=== PATIENT | female | born 1945 | race Caucasian/White ===

== ENCOUNTER 2024-09-30 13:43 | Outpatient (REF) | payer OTHER, SELFPAY ==
--- NOTE | ~2024-09-30 | MM_ITS ---
EXAMINATION: MM SCREENING DIGITAL BREAST TOMOSYNTHESIS, BILATERAL CLINICAL INFORMATION: Screening. Asymptomatic. COMPARISON: Mammography: Baseline. TECHNIQUE: Digital breast mammography with tomosynthesis is performed in both the craniocaudal and mediolateral oblique views along with computer-aided detection (CAD). FINDINGS: The breasts are heterogeneously dense, which may obscure small masses (ACR BI-RADS breast composition Category c). There are no significant masses, abnormal calcifications, or other abnormalities. MM/MM tomosynthesis screening BI IMPRESSION: No mammographic evidence of malignancy. ASSESSMENT: BI-RADS BI-RADS 1 - Negative RECOMMENDATION: Routine annual mammography screening. 1 year F/U This examination should not preclude the clinical evaluation of a suspicious palpable abnormality. This patient's information was entered into a reminder system with a target due date for their next mammogram. Electronically signed by: Rowena Sousa DO 10/05/2024 09:37 PM EDT
--- NOTE | ~2024-09-30 | MM_ITS ---
EXAMINATION: BONE DENSITOMETRY CLINICAL INDICATION: Early menopause. Hysterectomy. COMPARISON: This is the patient's baseline examination. TECHNIQUE: Using a Wantful DXA System (analysis version 13.60) manufactured by [employer], dual-energy x-ray absorptiometry was performed of the lumbar spine and left hip. The images are of good technical quality. Summary results are attached. FINDINGS: AP SPINE L1-L2: Increased endplate sclerosis along the L3 and and sclerosis along the facet joints at L4 vertebra BMD 0.618 g/cm2, Z-score -2.2, T-score -4.6, limited bone density is increased due to sclerosis of endplates and facet joints in the lower lumbar spine.. LEFT FEMUR, NECK: BMD 0.682 g/cm2, Z-score -0.3, T-score -2.6, mild subchondral sclerosis along the left hip joint likely DJD. IDENTIFIED RISK FACTORS: None listed. HISTORY OF FRACTURE: Left foot fracture x3. MEDICATIONS: None listed. MM/XR DEXA axial skeleton IMPRESSION: 1. DIAGNOSIS: Osteoporosis based on the lowest T-score value of -4.6 in the lumbar spine applying World Health Organization criteria. 2. 10-YEAR FRACTURE RISK PREDICTION, FRAX: Major osteoporotic fracture 14.7%. Left hip 5.7% 3. Treatment Recommendations: NOF guidelines recommend consideration for treatment in postmenopausal women and men age 50 and older presenting with the following: -A hip or vertebral (clinical or morphometric) fracture. -T-score less than or equal to -2.5 at the femoral neck or spine after appropriate evaluation to exclude secondary causes. -Low bone mass at the hip or spine and a 10-year fracture probability by FRAX of greater than or equal to 3% for hip fracture or greater than or equal to 20% for major osteoporotic fracture based on the [place] adapted WHO algorithm. 4. All treatment decisions require clinical judgment and consideration of individual patient factors, including patient preferences, comorbidities, previous drug use, risk factors not captured in the FRAX model and possible under or overestimation of fracture risk by fractures. Additional medical evaluation for secondary causes of lobe bone mineral density may be appropriate. FUTURE SCAN RECOMMENDATION: People with diagnosed cases of osteoporosis or at high risk for fracture should have regular bone mineral density tests. For patients eligible for Medicare, routine testing is allowed once every 2 years. The testing frequency can be increased to one year for patients who have rapidly progressing disease, those who are receiving or discontinuing medical therapy to restore bone mass, or have additional risk factors. Electronically signed by: Nghia Jackson MD 10/02/2024 07:50 AM EDT RP
--- OUTSIDE RECORDS SUMMARY | 2024-09-30 15:39 | XMS_ITS | Data Portability ---
Author Organization [facility], [id number] [place] [address] Assessment No assessment recorded. Plan of Treatment Reminders Order Date Submit Date Provider Last Modified By Organization Details Last Modified Time Details Appointments None record ed. Lab None record ed. Referral None record ed. Procedures None record ed. Surgeries None record ed. Imaging None record ed. Medication Orders None record ed. Patient TargetsNo targets recorded. Patient Instructions Encounter Date Encounter Id Patient Instructions Last Modified By Organization Details Last Modified Time 08/15/2022 [id number] We recommend you go immediately to the nearest Emergency Department for further evaluation. We recommend that you go directly there from here and that you do not eat or drink anything until after you have been evaluated by the ER and cleared by them to eat and drink. [email or web address] Not available 08/15/2022 15:26:58 Reason for Referral None Reported. Problems Name Problem SNOMED Code Status Onset Date Resolution Date Notes Provider Name and Address Organization Details Recorded Time Contreras's esophagus 481360078 Active 023 [facility] 15:19:34 Problem Notes None recorded. Medical Equipment None Reported. Allergies Allergen ID Allergen Name Allergen Category Reaction Reaction Severity Criticality Documentation Date Start Date Code Code System Note Provider Name and Address Organization Details Recorded Time 705146 codeine medicatio n anaphylax is severe Not available 08/15/2022 2670 [facility]Norm [facility] 3 15:18:30 Medications Name Sig Start Date Stop Date Status Note LastModified by Organization Details LastModified Time latanoprost 0.005 % eye drops 08/15 completed Not Available Not Available Not Available sucralfate 100 mg/mL oral suspension 2022 active Not Available Not Available Not Avai lable clonazepam 0.5 mg tablet TAKE 1 TABLET BY MOUTH EVERY OTHER DAY NEEDED active Not Available Not Available No t Available sulfamethoxa zole 800 mg-trimethop rim 160 mg tablet TAKE 1 TABLET BY MOUTH TWICE A DAY FOR 5 DAYS 08/15 completed Not Available Not Available Not Available pantoprazole 40 mg tablet,delay ed release TAKE 1 TABLET BY MOUTH EVERY DAY active Not Available Not Available No t Available lansoprazole 30 mg capsule,tyesha yed release TAKE 1 CAPSULE BY MOUTH DAILY FOR 360 DAYS. active Not Available Not Available No t Available Synthroid 75 mcg tablet active Not Available Not Available N ot Available fluticasone propionate 50 mcg/actuatio n nasal spray,suspen jose luis active Not Available Not Available Not Available amoxicillin 875 mg-potassium clavulanate 125 mg tablet TAKE 1 TABLET BY MOUTH TWICE A DAY FOR 5 DAYS 08/15 completed Not Available Not Available Not Available levothyroxin e 75 mcg capsule 08/15 completed Not Available Not Available Not Available Vitals Date Recorded Respiratory rate Oxygen saturation Oxygen saturation in Arterial blood by Pulse oximetry Heart rate Body height Body mass index (BMI) Body weight Body temperature Systolic blood pressure Diastolic blood pressure Provider Name and Address Organization Details Last Updated DateTime 3 18 /min 99 % 99 % 60 /min 168.91 cm 17.2 kg/m2 53398.9 8 g 98 [degF] 101 mm[Hg] 62 mm[Hg] JOAQUIN FORD PA - [facility] 3 15:17:48 Social History Question Answer Notes LastModified by Organizat ion Details LastModified Time Tobacco Smoking Status Never Smoker JOAQUIN mckenzie PA - [facility] 08/15/2022 15:19:44 What Is Your Water Source? City [email or web address] Information not available 08/15/2022 What Is Your Heat Source? Electric [email or web address] Information not available 08/15/2022 Have You Had Direct Contact, Or Contact During Intimacy, With Monkeypox Rash, Scabs, Or Body Fluids From A Person With Monkeypox? No [email or web address] Information not available 08/15/2022 What Is Your Relationship Status? Unknown [email or web address] Information not available 08/15/2022 Have You Recently Traveled Abroad? No [email or web address] Information not available 08/15/2022 Are You Currently In School? No Information not available 08/15/2022 Sex: Unknown Functional Status Question Answer Note LastModified by Organizat ion Details LastModified Time Do you use any illicit or recreational drugs? No [email or web address] Information not available 08/15/2022 Do you or have you ever used any other forms of tobacco or nicotine? No [email or web address] Information not available 08/15/2022 Are you currently employed? No Information not available 08/15/2022 Mental Status None recorded. Family History Relationship Description Onset Age of this Age Resolved Age Notes LastModified by Organization Details LastModified Time Father No current problems or disability [email or web address] Not available 08/15 15:19:37 Mother No current problems or disability [email or web address] Not available 08/15 15:19:37 Medical History No medical history recorded. Gynecological HistoryNo gynecological history recorded. Obstetrics History GPAL:G 0 P 0 0 0 0 Past Encounters Encounter ID Performer Location Encounter Start Date Encounter Closed Date Diagnosis/Indication Diagnosis SNOMED-CT Code Diagnosis ICD10 Code Diagnosis [place] [id number] [place] [address] [address] [place] [address] 08/15/2022 15:04:41 08/15/2022 15:34:35 Diarrhea 84383581 R19.7 Risks of not being further evaluated in the ED discussed with pt including but not limited to and permanent disability . Pt verbalized understand ing and agreement with plan to proceed to a higher level of care. Patient were advised of the risks and benefits of transfer to the ED via EMS for further evaluation / treatment, including but not limited to the possibilit y of serious medical consequenc es up to and including , and have refused this recommenda tion to be transporte d via ambulance. Fatigue 80605435 R53.83 Health Concerns Section Related Observation LastModified by Organization Detai ls LastModified Time None Recorded Concern Status LastModified by Organization Details LastModified Time None Recorded Advance Directives Directive None Recorded Payers Insurance Date Sequence Insurance Name Policy Number Policy Munoz Covered Member ID Munoz Member ID Guarantor Name 08/15/2022 1 [facility] - DUAL ELIGIBLE (MEDICARE REPLACEMENT/A DVANTAGE - PPO) [id number] Nicole Saunders [id number] Nicole Saunders Notes Date Note Type Note Provider Name and Address Organization Details Recorded Time 08/15/2022 text/html Diarrhea UCReported bypatient.Notes:p t sts shes been going to the bathroom non stop since eating a a [place] restaurant 1 week ago, Hx of 7 colon surgeries. no PCP here. fatigue, hx of cdiff. KING ELAM [address] [place], [address], PA - [facility] 08/15/2022 15:28:29 OBGyn Episode No OBEpisode recorded.
== END 2024-09-30 13:44 | disposition home or self-care (01) ==
LOC: HO.MAMMO 13:43
PROVIDERS: PCP Nurse Practitioner Family; Visit Provider Nurse Practitioner Family
DX: Z12.31 Encounter for screening mammogram for malignant neoplasm of breast (principal); Z13.820 Encounter for screening for osteoporosis; Z78.0 Asymptomatic menopausal state
CPT/HCPCS: 77063; 77067; 77080

== ENCOUNTER → 2024-09-30 14:30 | Outpatient (BNV) | payer OTHER, SELFPAY | PROVIDERS: PCP Nurse Practitioner Family; Visit Provider Radiology Diagnostic Radiology | DX: E28.39 Other primary ovarian failure (principal) | CPT/HCPCS: 77063; 77067; 77080 ==

== ENCOUNTER 2025-03-02 08:48 | Outpatient (AMB) | payer OTHER, SELFPAY ==
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
[2025-03-02 08:58] VITALS: BP 130/63; PULSE 54; RESP 16; TEMP 36.4; O2SAT 97; BMI 16.4
== END 2025-03-02 10:47 | disposition home or self-care (01) ==
LOC: HO.HMCFMS 08:49
PROVIDERS: PCP Nurse Practitioner Family; Visit Provider Student in an Organized Health Care Education/Training Program
DX: E03.9 Hypothyroidism, unspecified (principal); E55.9 Vitamin D deficiency, unspecified; E53.8 Deficiency of other specified B group vitamins; G47.9 Sleep disorder, unspecified; R63.6 Underweight; I73.00 Raynaud's syndrome without gangrene; Z59.41 Food insecurity; F41.9 Anxiety disorder, unspecified; Z91.81 History of falling

== ENCOUNTER 2025-03-06 10:38 | Outpatient (REF) | payer OTHER, SELFPAY ==
--- OUTSIDE RECORDS SUMMARY | 2024-06-21 16:30 | XMS_ITS ---
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 Role Phone Jessica MARRUFO, Nina Primary Care Provider U DENG Del Rosario Unavailable Migration, Provider Unavailable Unavailable Allergies Allergen (clinical drug ingredient) Drug/Non Drug Allergy documented on EMR Reaction Allergy Type Onset Date Status codeine Codeine Unknown Drug Allergy Active [facility]AS[facility] VISIT [facility] Encounter Medications Medication SIG (Take, Route, Frequency, Duration) Notes Start Date End Date Status Methenamine Hippurate MANDELATE 1 G TABLET 1 TAB(S) ORALLY DAILY; Duration: 30 DAY(S) *Please review and pick correct strength-formulatio n from IP Streetspan options. If intended option is not shown, discontinue and re-order from Quick Search* 10/16/2016 Active KlonoPIN *Please review a nd pick correct strength-formulatio n from IP [employer] options. If intended option is not shown, discontinue and re-order from Quick Search* Active Levoxyl *Please review a nd pick correct strength-formulatio n from IP [employer] options. If intended option is not shown, discontinue and re-order from Quick Search* Active Valtrex 1 GM Tablet 1 tab(s) orally every 8 hours; Duration: 7 day(s) Active buPROPion HCl 75 MG Tablet 1 tab(s) orally 3 times a day; Duration: 30 day(s) Active Sertraline HCl 25 MG Tablet 1 tab(s) orally once a day; Duration: 30 day(s) Active Encounters Encounter Location Date Provider Diagnosis [facility] [address] [place] [address] 06/21/2024 Provider Migration Plan Of Treatment No Information Progress Notes * Nicole SAUNDERS ADOB: [birth year] (79 yo F)Acc No.[id number]:06/21/2024 Patient: Nicole Medina Provider: Uday babb Migration :1945 A ge:79 Y S ex:Female Date:06/21/2024 Address:[address] [employer] [id number] Pcp:Nina Lopez MD Subjective: * Chief Complaints: * M ultum To Medis[facility] Conversion Encounter * Medications: T akingMethenamine Hippurate MANDELATE 1 G TABLET 1 TAB(S) ORALLY DAILY , Notes to Pharmacist: *Please review and pick correct strength-formulation from Medispan options. If intended option is not shown, discontinue and re-order from Quick Search*Levoxyl , Notes to Pharmacist: *Please review and pick correct strength-formulation from Medispan options. If intended option is not shown, discontinue and re-order from Quick Search*KlonoPIN , Notes to Pharmacist: *Please review and pick correct strength-formulation from Medispan options. If intended option is not shown, discontinue and re-order from Quick Search*buPROPion HCl 75 MG Tablet 1 tab(s) orally 3 times a day Valtrex 1 GM Tablet 1 tab(s) orally every 8 hours Sertraline HCl 25 MG Tablet 1 tab(s) orally once a day Taking Methenamine Hippurate MANDELATE 1 G TABLET 1 TAB(S) ORALLY DAILY , Notes to Pharmacist: *Please review and pick correct strength-formulation from Medispan options. If intended option is not shown, discontinue and re-order from Quick Search*Taking Levoxyl , Notes to Pharmacist: *Please review and pick correct strength-formulation from Medispan options. If intended option is not shown, discontinue and re-order from Quick Search*Taking KlonoPIN , Notes to Pharmacist: *Please review and pick correct strength-formulation from Medispan options. If intended option is not shown, discontinue and re-order from Quick Search*Taking buPROPion HCl 75 MG Tablet 1 tab(s) orally 3 times a day Taking Valtrex 1 GM Tablet 1 tab(s) orally every 8 hours Taking Sertraline HCl 25 MG Tablet 1 tab(s) orally once a day * Allergies: C odeine Billing Information: * Procedure Codes: * Electronic signature of Prov ider Migration on 03/06/2025 at 11:23 AM EST Sign off status: Pending * Provider: Uday babb Migration Date: 0 06/21/2024 Generated for Iva garrido/Seema/Larissaitting on: 1 05/06/2024 11:23 AM EST
--- OUTSIDE RECORDS SUMMARY | 2025-03-06 11:23 | XMS_ITS | Clinical Summary ---
Author Organization [facility] [address] [facility] Address [address] [place] [address] Phone Care Team Providers Care Director Of Collections Name Role Phone BrianrosalieElisha Primary Care Provider Surgical History Surgery Date Site/Laterality Comments APPENDECTOMY PROCEDURE: HISTORICAL APPENDECTOMY HYSTERECTOMY PROCEDURE: HISTORICAL HYSTERECTOMY ABDOMINAL SURGERY 03/04/2020 PROCEDURE: WI UNLISTED PROCEDURE ABDOMEN PERITONEUM & OMENTUM; COMMENT: Also done 2006 OTHER SURGICAL HISTORY N/A PROCEDURE: WI ENTEROTOMY SM INT OTH/THN DUO EXPL BX/FB RMVL; COMMENT: x 2, 2012 and 2014 BREAST LUMPECTOMY PROCEDURE: HISTORICAL BREAST LUMPECTOMY; COMMENT: x 3. OVARIAN CYST REMOVAL PROCEDURE: WI OVARIAN CYSTECTOMY UNI/BI; COMMENT: Repair of ruptured ovary. OTHER SURGICAL HISTORY 2006 PROCEDURE: WI PERIRECTAL INJ SCLEROSING SOLUTION PROLAPSE; COMMENT: posterior colopexy. ESOPHAGOGASTRODUODENOSCOPY 10/13/2021 PROCEDURE: WI EGD TRANSORAL BIOPSY SINGLE/MULTIPLE; COMMENT: esoph ulcer, hiatal hernia, Contreras's OTHER SURGICAL HISTORY 11/19/2023 N/A PROCEDURE: WI LAPS RPR PARAESPHGL HRNA INCL FUNDPLSTY W/MESH Medical History Medical History Date Comments Anxiety and depression DX:Anxiet y and depression Hypothyroidism DX:Hypothyroidis m SBO (small bowel obstruction ) (CMS/HCC V24, CMS/HCC V28) DX:SBO (small bowel obstruct ion) ([facility]); COMMENT: Recurrent. Hospitalized 03/03/2020 - 03/26/2020, [facility] Surg 03/04/2020 exploratory lap, lysis of adhesions. NGT post surgery self removed. Repeat CT showed ileus vs obstruction. Pt did not want to return to OR Required TPN. Post-op complicated by prolonged ileus. Recurrent UTI DX:Recurrent UTI PTSD (post-traumatic stress disorder) 09/22/2021 DX:PTSD (post-traumatic stress disorder) Mitral valve prolapse 09/26/2021 DX:Mitral valve prolapse Seizure disorder (CMS/HCC V2 4, CMS/HCC V28) 09/26/2021 DX:Seizure disorder (HCC); C OMMENT: No seizures in many years. Ruptured ovarian cyst 09/26/2021 DX:Rupture d ovarian cyst Contreras's esophagus DX:Contreras's esophagus Indigestion DX:Indigestion Gastritis DX:Gastritis Hiatal hernia DX:Hiatal hernia Social History Tobacco Use Types Packs/Day Years Used Date Smoking Tobacco: Never Smokeless Tobacco: Never Comments Unknown Sex and Gender Information Value Date Recorded Sex Assigned at Not on file Legal Sex Female 2:14 PM EST Gender Identity Not on file Sexual Orientation Not on file Obstetrics History Last Filed Vital Signs Vital Sign Reading Time Taken Comments Blood Pressure 117/74 12/21/2023 9:23 AM EDT Sitting L Arm Pulse 64 12/21/2023 9:23 AM EDT Temperature - - Respiratory Rate - - Oxygen Saturation - - Inhaled Oxygen Concentration - - Weight 45 kg (99 lb 3.2 oz) 12/21/2023 9:23 AM EDT Height 168.9 cm (5' 6.5 ) 12/21/2023 9: 23 AM EDT Body Mass Index 15.77 12/21/2023 9:23 AM EDT Plan of Treatment Health Maintenance Due Date Last Done Comments Zoster Vaccines (1 of 2) 1996 Falls Risk Assessment 03/26/2022 Hepatitis C Screening 03/26/2022 Medicare Annual Wellness Visit 03/26/2022 Osteoporosis Screening (Bone Density Screening) 03/26/2022 Social Influencers of Health Screening 03/26/2022 Depression Screening 04/16/2024 COVID-19 Vaccine ( season) 2025 01/04/2025, 01/09/2024, 01/15/2023, Additional history exists Cholesterol Screening (Lipid Panel) 11/17/2029 11/17/2024, 08/14/2024 DTaP,Tdap,and Td Vaccines (2 - Td or Tdap) 09/20/2032 09/20/2022 RSV Immunization Adult Patients Completed 01/16/2023 Pneumococcal Vaccine: 50+ Years Completed 01/17/2024, 03/28/2016, 08/15/2011 Influenza Vaccine Completed 01/04/2025, , 01/16/2023, Additional history exists HIB Vaccines Aged Out No longer eligi ble based on patient's age to complete this topic HPV Vaccines Aged Out No longer eligi ble based on patient's age to complete this topic Hepatitis A Vaccines Aged Out No long er eligible based on patient's age to complete this topic Hepatitis B Vaccines Aged Out No long er eligible based on patient's age to complete this topic IPV Vaccines Aged Out No longer eligi ble based on patient's age to complete this topic MMR Vaccines Aged Out No longer eligi ble based on patient's age to complete this topic Meningococcal ACWY Vaccine Aged Out N o longer eligible based on patient's age to complete this topic Meningococcal B Vaccine Aged Out No l onger eligible based on patient's age to complete this topic RSV Immunization Patients Under 20 months Aged Out No longer eligible based on patient's age to complete this topic Varicella Vaccines Aged Out No longer eligible based on patient's age to complete this topic Procedures Procedure Name Priority Date/Time Associated Diagnosis Comments CULTURE URINE Routine 01/29/2025 10:54 AM EDT Hypothyroidism Hyperlipemia Peripheral nerve disorder Urinary tract infection, site not specified LIPID PANEL WITH REFLEX TO DIRECT LDL Routine 11/17/2024 2:39 PM EDT Hypothyroidism Hyperlipemia Peripheral nerve disorder Urinary tract infection, site not specified from Last 3 Months or Most Recently Relevant to Health Maintenance Results * (ABNORMAL) Culture urine (01/29/2025 10:54 AM EDT) Culture, Urine >=100,000 CFU/mL Escherichia coli(A) PEGGY 01/31/2025 10:45 AM EDT [facility] Comment: This is an edited result. Previous organism was Gram negative bacilli on 01/30/2025 at 0808 EDT. Urine Urine specimen obtained by clean catch procedure / Unknown Non-blood Collection / Unknown 01/29/2025 10:54 AM EDT 01/29/2025 10:54 AM EDT Narrative Organism Antibiotic Method Susceptibility Escherichia coli Amoxicillin/Clavulanate PEGGY 4 ug/ml: Susceptible Escherichia coli Ampicillin/Sulbactam PEGGY 4 ug/ml: Susceptible Escherichia coli Piperacillin/Tazobactam PEGGY <=4 ug/ml: Susceptible Escherichia coli Cefazolin (Urine) PEGGY <=1 ug/ml: Susceptible Escherichia coli Cefoxitin PEGGY <=4 ug/ml: Susceptible Escherichia coli Ceftazidime PEGGY <=0.5 ug/ml: Susceptible Escherichia coli Ceftriaxone PEGGY <=0.25 ug/ml: Susceptible Escherichia coli Cefepime PEGGY <=0.12 ug/ml: Susceptible Escherichia coli Meropenem PEGGY <=0.25 ug/ml: Susceptible Escherichia coli Amikacin PEGGY 2 ug/ml: Susceptible Escherichia coli Gentamicin PEGGY <=1 ug/ml: Susceptible Escherichia coli Ciprofloxacin PEGGY <=0.06 ug/ml: Susceptible Escherichia coli Levofloxacin PEGGY <=0.12 ug/ml: Susceptible Escherichia coli Nitrofurantoin PEGGY <=16 ug/ml: Susceptible Escherichia coli Trimethoprim/Sulfamethoxazole PEGGY <=20 ug/ml: Susceptible us Elisha Uko-Abasi LAB MICROBIOLOGY - GENERAL ORDER EMILY Final Result [facility] [address] [place] [address], * Lipid panel with reflex to direct LDL (11/17/2024 2:39 PM EDT) Cholesterol 146 0 - 200 mg/dL LAB CHEMISTRY METHOD 11/17/2024 5:41 PM EDT [facility] Triglycerides 45 0 - 150 mg/dL LAB CHEMISTRY METHOD 11/17/2024 5:41 PM EDT [facility] HDL 81 >=40 mg/dL LAB CHEMISTRY METHOD 11/17/2024 5:41 PM EDT [facility] LDL Calculated 56 0 - 100 mg/dL LAB CHEMISTRY METHOD 11/17/2024 5:41 PM EDT [facility] VLDL Cholesterol Shan 9 mg/dL LAB CHEMISTRY METHOD 11/17/2024 5:41 PM EDT [facility] Non HDL Chol. (LDL+VLDL) 65 <145 mg/dL LAB CHEMISTRY METHOD 11/17/2024 5:41 PM EDT [facility] Chol/HDL Ratio 1.8 0.0 - 4.4 LAB CHEMISTRY METHOD 11/17/2024 5:41 PM EDT [facility] Blood Venous blood specimen / Unknown Venipuncture / Unknown 11/17/2024 2:39 PM EDT 11/17/2024 2:39 PM EDT us Elisha Uko-Abasi LAB BLOOD ORDERABLES Final Resul t [facility] [address] [place] [address], [place] [phone] from Last 3 Months or Most Recently Relevant to Health Maintenance Insurance [facility] MED[facility] Advance Directives Documents on File Type Date Recorded 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 Health Care Decision (hx) 11/22/2023 AD SNIDER DIRECTIVE Health Care Decision (hx) 11/22/2023 AD SNIDER DIRECTIVE Health Care Decision (hx) 11/22/2023 AD SNIDER DIRECTIVE Health Care Decision (hx) 11/19/2023 HE ALTH CARE PROXY Health Care Decision (hx) 11/19/2023 HE ALTH CARE PROXY Health Care Decision (hx) 11/19/2023 HE ALTH CARE PROXY Health Care Decision (hx) 11/02/2022 AD SNIDER DIRECTIVE Health Care Decision (hx) 11/01/2022 AD SNIDER DIRECTIVE Health Care Decision (hx) 11/01/2022 AD SNIDER DIRECTIVE Health Care Decision (hx) 11/01/2022 AD SNIDER DIRECTIVE Health Care Decision (hx) 11/01/2022 AD SNIDER DIRECTIVE Health Care Decision (hx) 11/01/2022 AD SNIDER DIRECTIVE Health Care Decision (hx) 11/01/2022 AD SNIDER DIRECTIVE Health Care Decision (hx) 11/01/2022 AD SNIDER DIRECTIVE Health Care Decision (hx) 11/01/2022 AD SNIDER DIRECTIVE Health Care Decision (hx) 11/01/2022 AD SNIDER DIRECTIVE Health Care Decision (hx) 11/01/2022 AD SNIDER DIRECTIVE Health Care Decision (hx) 11/01/2022 AD SNIDER DIRECTIVE Care Teams Director Of Collections Relationship Specialty Start Date End Date Elisha Wilkins [address] [place] [address] PCP - General 02/11/24
--- OUTSIDE RECORDS SUMMARY | 2025-03-06 11:23 | XMS_ITS | Patient Health Record ---
Author Organization [facility] Address [address] [place] [address] Care Team Providers Care Molding Process Technician Name Role Phone Nina Lopez MD Primary Care Provider U TAURUS Del RosarioAUBREEAnnabella Unavailable [phone] Migration, Provider Unavailable Unavailable Allergies Allergen (clinical drug ingredient) Drug/Non Drug Allergy documented on EMR Reaction Allergy Type Onset Date Status codeine Codeine Unknown Drug Allergy Active Reason For Referral No Information Medications Medication SIG (Take, Route, Frequency, Duration) Notes Start Date End Date Status Methenamine Hippurate MANDELATE 1 G TABLET 1 TAB(S) ORALLY DAILY; Duration: 30 DAY(S) *Please review and pick correct strength-formulatio n from Sp[employer] Change Paymentsan options. If intended option is not shown, discontinue and re-order from Quick Search* 10/16/2016 Active KlonoPIN *Please review a nd pick correct strength-formulatio n from Medispan options. If intended option is not shown, discontinue and re-order from Quick Search* Active Levoxyl *Please review a nd pick correct strength-formulatio n from ICE Entertainmentspan options. If intended option is not shown, discontinue and re-order from Quick Search* Active Valtrex 1 GM Tablet 1 tab(s) orally every 8 hours; Duration: 7 day(s) Active buPROPion HCl 75 MG Tablet 1 tab(s) orally 3 times a day; Duration: 30 day(s) Active Sertraline HCl 25 MG Tablet 1 tab(s) orally once a day; Duration: 30 day(s) Active Social History Social History Additional Details Category Social Info Options Details Social History Alcohol: socially Very Little Smoking: no Sexually active: no If involved in a relationship Problems Problem Type SNOMED Code ICD Code Onset Dates Problem Status W/U Status Risk Notes Problem Urinary tract infectious disease (disorder) (59227174) Urinary tract infection, site not specified (N39.0) Active confirmed Problem Calculus of kidney (55995968) Calculus of kidney (N20.0) Active confirmed Encounters Encounter Location Date Provider Diagnosis [facility] [address] [place] [address] 06/21/2024 Provider Migration Plan Of Treatment No Information Insurance Providers Payer Name Payer Address Payer Phone Subscriber Number Group Number Insured Name Patient Relationship to Insured Coverage Start Date Coverage End Date [facility] Medicare Advantage [address] [address] [place] [address] [id number] Nicole Saunders Self - patient is the insured Medical (General) History Medical History History ICD Code Septocemia Colitis Anxiety disorder C-diff Glaucoma(Pt uses eye drops for this) Surgical History Surgery Date(Month/Year) Colon Resection 08/2006 Colon Surgery 02/2007 6 Blockages 3 Non-malignant Tumors Hysterectomy, unspecified 1974 3 Ovarian Cysts Ruptured btween 1969- Appendix 1970
--- OUTSIDE RECORDS SUMMARY | 2025-03-06 11:23 | XMS_ITS | Data Portability ---
Author Organization [facility], [id number] [place] [address] Assessment No assessment recorded. Plan of Treatment [...] By Organization Details Last Modified Time 08/15/2022 [id number] We recommend you go immediately to the nearest Emergency Department for further evaluation. We recommend that you go directly there from here and that you do not eat or drink anything until after you have been evaluated by the ER and cleared by them to eat and drink. Not available 08/15/2022 15:26:58 Reason for Referral None Reported. Problems Name Problem SNOMED Code Status Onset Date Resolution Date Notes Provider Name and Address Organization Details Recorded Time Contreras's esophagus [id number] Active 023 [facility] 3 15:19:34 Problem Notes None recorded. Medical Equipment None Reported. Allergies Allergen ID Allergen Name Allergen Category Reaction Reaction Severity Criticality Documentation Date Start Date Code Code System Note Provider Name and Address Organization Details Recorded Time 114571 codeine medicatio n anaphylax is severe Not available 08/15/2022 2670 [facility]Norm [facility] 3 15:18:30 Medications Name Sig Start [...] Not Available Vitals Date Recorded Respiratory rate Pain severity - 0-10 verbal numeric rating [Score] - Reported Oxygen saturation Heart rate Body height Body mass index (BMI) Body weight Body temperature Systolic And Diastolic Provider Name and Address Organization Details Last Updated DateTime 3 18 /min 0 99 % 60 /min 168.91 cm 17.2 kg/m2 45893.9 8 g 98 [degF] 101/62 mm[Hg] JOAQUIN FORD PA - [facility] 3 15:17:48 Social History Question Answer Notes LastModified by Organizat ion Details LastModified Time Tobacco Smoking Status Never Smoker JOAQUIN mckenzie PA - [facility] 08/15/2022 15:19:44 What Is Your Water Source? City [email or web address] Information not available 08/15/2022 What Is Your Heat Source? Electric [email or web address] Information not available 08/15/2022 Have You Had Direct Contact, Or Contact During Intimacy, With Monkeypox Rash, Scabs, Or Body Fluids From A Person With Monkeypox? No [email or web address] Information not available 08/15/2022 What Is Your Relationship Status? Unknown [email or web address] Information not available 08/15/2022 Have You Recently Traveled Abroad? No [email or web address] Information not available 08/15/2022 Are You Currently In School? No [email or web address] Information not available 08/15/2022 Sex: Unknown Functional Status Question Answer Note LastModified by Organizat ion Details LastModified Time Do you use any illicit or recreational drugs? No [email or web address] Information not available 08/15/2022 Do you or have you ever used any other forms of tobacco or nicotine? No Information not available 08/15/2022 Are you currently employed? No [email or web address] Information not available 08/15/2022 Mental Status None recorded. Family History Relationship Description Onset Age of this Age Resolved Age Notes LastModified by Organization Details LastModified Time Father No current problems or disability [email or web address] Not available 08/15 15:19:37 Mother No current problems or disability [email or web address] Not available 08/15 15:19:37 Medical History No medical history recorded. Gynecological HistoryNo gynecological history recorded. Obstetrics History GPAL:G 0 P 0 0 0 0 Past Encounters Encounter ID Performer Location Encounter Start Date Encounter Closed Date Diagnosis/Indication Diagnosis SNOMED-CT Code Diagnosis ICD10 Code Diagnosis IMO Codes Diagnosis [place] [id number] [place] [address] [address] [place] [address] 08/15/2022 15:04:41 08/15/2022 15:34:35 Diarrhea 11783174 R19.7 Risks of not being further evaluated [...] to be transporte d via ambulance. Fatigue 28485309 R53.83 Health Concerns Section Related Observation LastModified by Organization Detai ls LastModified Time None Recorded Concern Status LastModified by Organization Details LastModified Time None Recorded Advance Directives Directive None Recorded Payers Insurance Date Sequence Insurance Name Policy Number Policy Munoz Covered Member ID Munoz Member ID Guarantor Name 08/15/2022 1 [facility] - DUAL ELIGIBLE (MEDICARE REPLACEMENT/A DVANTAGE - PPO) [id number] Nicole Saunders [id number] Nicole Saunders Notes Date Note Type Note Provider Name and Address Organization Details Recorded Time 08/15/2022 text/html Diarrhea UCReported by Patientpt sts shes been going to the bathroom non stop since eating a a [place] restaurant 1 week ago, Hx of 7 colon surgeries. no PCP here. fatigue, hx of cdiff. KING ELAM [address] [place], [address], PA - [facility] 08/15/2022 15:28:29 OBGyn Episode No OBEpisode recorded.
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
[2025-03-06 13:15] LABS: Appearance Urine Clear; Glucose Urine UA Negative (Negative); PH 6.5 (5.0-9.0); Specific Gravity - Urine 1.025 (1.005-1.025); UMIC TRIGGER UACC YES
[2025-03-06 13:19] LABS: MANUAL DIFF FLAG NO
[2025-03-06 13:27] LABS: Hematocrit 41.4 % (37.0-47.0); Hemoglobin 13.2 g/dl (12.0-16.0); Imm Gran Abs Auto 0.02 X10*3/uL (0.00-0.03); Imm Gran Pct Auto 0.3 % (0.0-0.4); Lymphocytes Absolute Auto 0.9 X10*3/uL (1.2-4.9); Mean Corpuscular HGB Conc 31.9 g/dl (31.0-35.0); Mean Corpuscular Hemoglobin 31.2 pg (27.0-33.0); Mean Corpuscular Volume 97.9 fL (80.0-98.0); NRBC Abs Auto 0.000 X10*3/uL (0.0-0.012); NRBC Pct Auto 0.0 /100WBC (0.0-0.2); Platelet Count 267 X10*3/uL (160-400); Red Blood Count 4.23 X10*6/uL (4.20-5.50); White Blood Count 6.1 X10*3/uL (4.8-10.8)
[2025-03-06 13:47] LABS: Alanine Aminotransferase 26 U/L (0-31); Albumin Level 4.5 g/dL (3.5-5.0); Alkaline Phosphatase 62 U/L (39-117); Anion Gap 9 (12-20); Aspartate Amino Transferase 27 U/L (5-31); Blood Urea Nitrogen 29 mg/dL (9-16); Calcium 9.0 mg/dL (8.4-10.2); Carbon Dioxide 27 mmol/L (22-29); Chloride 106 mmol/L (96-108); Cholesterol 253 mg/dL (<200); Estimated Glomerular Filt Rate > 60; HDL Cholesterol 90 mg/dL (>40); Magnesium 2.2 mg/dL (1.6-2.6); Potassium 4.3 mmol/L (3.3-5.1); Sodium 138 mmol/L (135-145); Total Protein 7.3 g/dL (6.5-8.0); Triglycerides 55 mg/dL (<150)
[2025-03-06 14:15] LABS: Folate 14.6 ng/mL (> or = 4.0); Vitamin B12 1797 pg/mL (200-900)
[2025-03-07 08:26] LABS: Syphilis Screen Nonreactive (Nonreactive)
[2025-03-07 08:44] LABS: HBS Num1 1.00 mIU/mL (0-7.99); HBsAGNum1 0.46 S/CO (0.00-0.99); HIV Num 1 0.06 S/CO (0.00-0.99); Hepatitis B Surface Antigen Negative (Negative); ~HepC Num1 0.16 S/CO (0.00-0.79); ~Hepatitis B Surface Antibody NONREACTIVE (Nonreactive); ~Hepatitis C Antibody Nonreactive (Nonreactive)
[2025-03-11 08:59] LABS: VITAMIN D (1,25 OH) D3 108 pg/mL; Vit D (1,25-Dihydroxy) Total 108 pg/mL (18-72); Vitamin D (1,25 OH) D2 <8 pg/mL
== END 2025-03-06 10:39 | disposition home or self-care (01) ==
LOC: HO.HKASLDS 10:38
PROVIDERS: PCP Student in an Organized Health Care Education/Training Program; Visit Provider Student in an Organized Health Care Education/Training Program
DX: Z13.6 Encounter for screening for cardiovascular disorders (principal); Z13.1 Encounter for screening for diabetes mellitus; Z11.4 Encounter for screening for human immunodeficiency virus [HIV]; Z13.29 Encounter for screening for other suspected endocrine disorder; Z20.2 Contact with and (suspected) exposure to infections with a predominantly sexual mode of transmission
CPT/HCPCS: 36415; 80053; 80061; 81001; 81003; 82607; 82652; 82746; 83036; 83735; 84443; 85025; 86706; 86780; 86803; 87340; 87389

== ENCOUNTER 2025-03-17 08:40 | Outpatient (AMB) | payer OTHER, SELFPAY ==
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
--- OUTSIDE RECORDS SUMMARY | 2025-03-17 08:46 | XMS_ITS | Data Portability ---
Author Organization [facility] gabriel, [address] [place] [address] Assessment No assessment recorded. Plan of Treatment [...] By Organization Details Last Modified Time 08/15/2022 [id number] We recommend you go immediately to the nearest Emergency Department for further evaluation. We recommend that you go directly there from here and that you do not eat or drink anything until after you have been evaluated by the ER and cleared by them to eat and drink. [email or web address] Not available 08/15/2022 15:26:58 Reason for Referral None Reported. Problems Name Problem SNOMED Code Status Onset Date Resolution Date Notes Provider Name and Address Organization Details Recorded Time Contreras's esophagus 599162502 Active 023 [facility] 15:19:34 Problem Notes None recorded. Medical Equipment None Reported. Allergies Allergen ID Allergen Name Allergen Category Reaction Reaction Severity Criticality Documentation Date Start Date Code Code System Note Provider Name and Address Organization Details Recorded Time 605087 codeine medicatio n anaphylax is severe Not [...] % 60 /min 168.91 cm 17.2 kg/m2 35607.9 8 g 98 [degF] 101/62 mm[Hg] JOAQUIN FORD PA - [facility] 15:17:48 Social History Question Answer Notes LastModified by Organizat ion Details LastModified Time Tobacco Smoking Status Never Smoker JOAQUIN mckenzie [place] - [facility] 08/15/2022 15:19:44 What Is Your Water Source? City [email or web address] Information not available 08/15/2022 What Is Your Heat Source? Electric [email or web address] Information not available 08/15/2022 Have You Had Direct Contact, Or Contact During Intimacy, With Monkeypox Rash, Scabs, Or Body Fluids From A Person With Monkeypox? No [email or web address] Information not available 08/15/2022 What Is Your Relationship Status? Unknown [email or web address] Information not available 08/15/2022 Have You Recently Traveled Abroad? No [email or web address] Information not available 08/15/2022 Are You Currently In School? No [email or web address] Information not available 08/15/2022 Sex: Unknown Functional Status Question Answer Note LastModified by Organizat ion Details LastModified Time Do you use any illicit or recreational drugs? No [email or web address] Information not available 08/15/2022 Do you or have you ever used any other forms of tobacco or nicotine? No [email or web address] Information not available 08/15/2022 Are you currently employed? No Information not available 08/15/2022 Mental Status None recorded. Family History Relationship Description Onset Age of this Age Resolved Age Notes LastModified by Organization Details LastModified Time Father No current problems or disability [email or web address] Not available 08/15 15:19:37 Mother No current problems or disability [email or web address] Not available 08/15 15:19:37 Medical History No medical history recorded. Gynecological HistoryNo gynecological history recorded. Obstetrics History GPAL:G 0 P 0 0 0 0 Past Encounters Encounter ID Performer Location Encounter Start Date Encounter Closed Date Diagnosis/Indication Diagnosis SNOMED-CT Code Diagnosis ICD10 Code Diagnosis IMO Codes Diagnosis Note [id number] [place] [address] [address] [place] [address] 08/15/2022 15:04:41 08/15/2022 15:34:35 Diarrhea 85567091 R19.7 Risks of not being further evaluated [...] to be transporte d via ambulance. Fatigue 98764886 R53.83 Health Concerns Section Related Observation LastModified by Organization Detai ls LastModified Time None Recorded Concern Status LastModified by Organization Details LastModified Time None Recorded Advance Directives Directive None Recorded Payers Insurance Date Sequence Insurance Name Policy Number Policy Munoz Covered Member ID Munoz Member ID Guarantor Name 08/15/2022 1 [facility] (MEDICARE REPLACEMENT/A DVANTAGE - PPO) [id number] Nicole Saunders [id number] Nicole Saunders Notes Date Note Type Note Provider Name and Address Organization Details Recorded Time 08/15/2022 text/html Diarrhea UCReported by Patientpt sts shes been going to the bathroom non stop since eating a a [place] restaurant 1 week ago, Hx of 7 colon surgeries. no PCP here. fatigue, hx of cdiff. KING ELAM [address] [place], [address], [place] - [facility] 08/15/2022 15:28:29 OBGyn Episode No OBEpisode recorded.
--- OUTSIDE RECORDS SUMMARY | 2025-03-17 08:46 | XMS_ITS | Clinical Summary ---
Author Organization [facility] 299 [facility] Address [address] [place] [address] Phone Care Team Providers Care Engineer System Administrator Name Role Phone BrianrosalieElisha Primary Care Provider [phone] Surgical History Surgery Date Site/Laterality Comments APPENDECTOMY PROCEDURE: HISTORICAL APPENDECTOMY HYSTERECTOMY PROCEDURE: HISTORICAL HYSTERECTOMY ABDOMINAL SURGERY 03/04/2020 PROCEDURE: CO UNLISTED PROCEDURE ABDOMEN PERITONEUM & OMENTUM; COMMENT: Also done 2006 OTHER SURGICAL HISTORY N/A PROCEDURE: CO ENTEROTOMY SM INT OTH/THN DUO EXPL BX/FB RMVL; COMMENT: x 2, 2012 and 2014 BREAST LUMPECTOMY PROCEDURE: HISTORICAL BREAST LUMPECTOMY; COMMENT: x 3. OVARIAN CYST REMOVAL PROCEDURE: CO OVARIAN CYSTECTOMY UNI/BI; COMMENT: Repair of ruptured ovary. OTHER SURGICAL HISTORY 2006 PROCEDURE: CO PERIRECTAL INJ SCLEROSING SOLUTION PROLAPSE; COMMENT: posterior colopexy. ESOPHAGOGASTRODUODENOSCOPY 10/13/2021 PROCEDURE: CO EGD TRANSORAL BIOPSY SINGLE/MULTIPLE; COMMENT: esoph ulcer, hiatal hernia, Contreras's OTHER SURGICAL HISTORY 11/19/2023 N/A PROCEDURE: CO LAPS RPR PARAESPHGL HRNA INCL FUNDPLSTY W/MESH Medical History Medical History Date Comments Anxiety and depression DX:Anxiet y and depression Hypothyroidism DX:Hypothyroidis m SBO (small bowel obstruction ) (CMS/HCC V24, CMS/HCC V28) DX:SBO (small bowel obstruct ion) ([facility]); COMMENT: Recurrent. Hospitalized 03/03/2020 - 03/26/2020, [facility] Surg 03/04/2020 exploratory lap, lysis [...] Escherichia coli(A) PEGGY 01/31/2025 10:45 AM EDT [facility] Comment: This is an edited result. [...] MICROBIOLOGY - GENERAL ORDER EMILY Final Result [facility] [address] [place] [address], * Lipid panel with reflex to direct LDL (11/17/2024 2:39 PM EDT) Cholesterol 146 0 - 200 mg/dL LAB CHEMISTRY METHOD 11/17/2024 5:41 PM EDT [facility] Triglycerides 45 0 - 150 mg/dL LAB CHEMISTRY METHOD 11/17/2024 5:41 PM EDT [facility] HDL 81 >=40 mg/dL LAB CHEMISTRY METHOD 11/17/2024 5:41 PM EDT [facility] LDL Calculated 56 0 - 100 mg/dL LAB CHEMISTRY METHOD 11/17/2024 5:41 PM EDT [facility] VLDL Cholesterol Shan 9 mg/dL LAB CHEMISTRY METHOD 11/17/2024 5:41 PM EDT [facility] Non HDL Chol. 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
[2025-03-17 09:05] VITALS: BP 139/75; PULSE 57; TEMP 37; O2SAT 95; BMI 15.8
--- NOTE | 2025-03-17 09:05 | A.OFFPC_ITS ---
Vital Signs 03/17/25 09:05 Height 5 ft 6.5 in Weight 99 lb 4 oz BMI 15.8 BP 139/75 Blood Pressure Location Rt brachial Position Sitting Pulse 57 Pulse Source Pulse Oximeter Temp 98.6 F Temp Source Oral Pulse Oximetry (%) 95 Oxygen Delivery Method Room Air Intake Visit Reasons: 2 wk lab review Accompanied by: Self / Same As Patient Allergies codeine Allergy (Intermediate, Verified 03/17/25 09:07) trouble breathing Medication List - Last Reconciled 03/17/25 by Zacarias Liu MD ashwagandha extract mg PO biotin mcg PO latanoprost 0.005% 1 drp ophthalmic (eye) BEDTIME levothyroxine 75 mcg PO QAM melatonin 10 mg PO BEDTIME PRN timolol maleate 0.5% 1 drp ophthalmic (eye) DAILY zolpidem 5 mg PO BEDTIME Tobacco use date assessed: 03/17/25 Fall risk assessment: No Falls in past year Last assessed Fall Risk: 03/17/25 Dental Screening Dental Screen Date: 03/17/25 HPI HPI Comments History of Present Illness Details History of Present Illness The patient is a 79 year old individual presenting for a follow-up visit to [facility] laboratory results. Viral upper respiratory infection: The patient reports symptoms consistent with a cold or flu for the past 11 days. The patient has been using DayQuil and NyQuil for symptom management. Hyperlipidemia: The patient has a history of consuming eggs. General Health: The patient has no history of hypertension or diabetes. The patient is currently taking supplements for vitamin B12 and vitamin D. Medications: - Vitamin B12 supplement - Vitamin D (cholecalciferol) supplement - DayQuil/NyQuil as needed for cold symp toms Social History: - Diet: The patient reports eating eggs. Diagnostic Results: - Complete blood count: Normal, includin g white blood cells, red blood cells, hemoglobin, and hematocrit. - Chemistry panel: Normal, including sod ium, potassium, kidney function, liver function, calcium, and magnesium. - Lipid panel: Total cholesterol 253 mg/ dL (high), LDL 152 mg/dL (high), HDL 90 mg/dL (high), and triglycerides 55 mg/dL (low). - Vitamin B12: 1797 (high). - Vitamin D: 108 (high). - Folate: Normal. - Thyroid function: Normal. - Urinalysis: Normal. - Infectious disease screening: Negative for syphilis, hepatitis B, hepatitis C, and HIV. Past Medical History - Denies a history of hypertension. - Denies a history of diabetes. Health Maintenance - Recommended a follow-up appointment in six months for reassessment. [facility] Medical History (Updated 03/17/25 @ 09:28 by Zacarias Liu MD) Hypervitaminosis Hypervitaminosis D Hyperlipidemia Viral URI History of recent fall Anxiety Insomnia PTSD (post-traumatic stress disorder) Raynaud's disease Sleep disturbance Vitamin B12 deficiency Vitamin D3 deficiency Hypothyroid Underweight Family History Father No problems noted. Mother Depressed Family history of thyroid problem Social History Housing: Apartment Patient Tobacco Use Status: Never used Tobacco service: No Current occupational status: retired Cognitive needs: No Hearing needs: No Vision needs: Yes (reading glasses) Questionnaire PHQ-9 Over the last 2 weeks, how often have you been bothered by any of the following problems? 1. Little interest or pleasure in doing things: not at all 2. Feeling down, depressed, or hopeless: not at all 3. Trouble falling or staying asleep, or sleeping too much: nearly every day 4. Feeling tired or having little energy: nearly every day 5. Poor appetite or overeating: more than half the days 6. Feeling bad about yourself - or that you are a failure or have let yourself or your family down: not at all 7. Trouble concentrating on things, such as reading the newspaper or watching television: not at all 8. Moving or speaking so slowly that other people could have noticed. Or the opposite - being so fidgety or restless that you have been moving around a lot more than usual: not at all 9. Thoughts that you would be better off or of hurting yourself in some way: not at all Total score: 8 Depression Screening Interpretation: Negative Depression Screening Done: Yes Source: Developed by Drs. Fernando Gross, Alison Escamilla, Anil Gordon and colleagues, with an educational jeff from [employer]. Thrive Questionnaire Date Thrive assessed: 03/17/25 I am a: Patient What is your living situation today?: I have a steady place to live Within the past 12 months, did the food you bought not last and you didn't have the money to get more?: Sometimes True Within the past 12 months, did you worry whether your food would run out before you got money to buy more?: Sometimes True Do you have trouble paying for medicines?: Yes Do you have trouble getting transportation to medical appointments?: No Do you have trouble paying your heating and electricity bill?: No Do you have trouble taking care of your child, family member or friend?: I ch oose not to answer this question Are you currently unemployed and looking for a job?: Yes Are you interested in more education?: No THRIVE Score: 2 AUDIT C Alcohol Use Questionnaire (AUDIT-C) 1. How often do you have a drink containing alcohol?: Monthly or less 2. How many drinks containing alcohol do you have on a typical day when you are drinking?: 1 or 2 3. How often do you have six or more drinks on one occasion?: Never Total Score: 1 BRAYAN-7 AMB Questionnaire BRAYAN-7 Date BRAYAN - 7 assessed: 03/17/25 Feeling nervous, anxious, or on edge: 3 = Nearly every day Not being able to stop or control worryin = Nearly every day Worrying too much about different things: 3 = Nearly every day Trouble relaxin = Not at all Being so restless that it is hard to sit still: 0 = Not at all Becoming easily annoyed or irritable: 0 = Not at all Feeling afraid as if something awful might happen: 3 = Nearly every day Total BRAYAN-7 score (0-4 normal; 5-9 mild; 10-14 moderate; 15-21 severe): 12 Source: Developed by Drs. Fernando Gross, Alison Escamilla, Anil Gordon and colleagues, with an educational jeff from [employer]. Review of Systems Narrative Review of Systems - General: Reports symptoms of a cold or flu for the past 11 days. - All other systems reviewed and are negative by default. 10-point ROS reviewed and negative except as noted in HPI Physical exam (Primary Care) Vital Signs: Last Vital Signs Temp 98.6 F 03/17/25 09:05 Pulse 57 03/17/25 09:05 BP 139/75 03/17/25 09:05 Pulse Ox 95 03/17/25 09:05 Oxygen Delivery Method Room Air 03/17/25 09:05 BMI result Body Mass Index 15.8 Tobacco/Smoking Status: Tobacco use Status Tobacco use date assessed 03/17/25 03/17/25 09:09 Patient Tobacco Use Status Never used Tobacco 03/17/25 09:09 PHQ-9: PHQ-9 Score PHQ-9: Total score 8 03/17/25 09:13 Depression Screening Interpretation: Negative Thrive Assessment: Date of Thrive Assessment Date Thrive assessed 03/17/25 03/17/25 09:09 Narrative Physical Exam General: Well-appearing, in no acute distress. Vital signs: Within normal limits. HEENT: Normocephalic, atraumatic. PERRLA, EOMI. Conjunctiva clear, sclera anicteric. Oropharynx clear, mucous membranes moist. TMs intact bilaterally. Neck: Supple, no lymphadenopathy, no thyromegaly, no JVD or carotid bruits. Cardiovascular: RRR, normal S1/S2, no murmurs, rubs, or gallops. Peripheral pulses 2+ and symmetric. No edema. Respiratory: Lungs clear to auscultation bilaterally, no wheezes, rales, or rhonchi. Normal effort. Abdomen: Soft, non-tender, non-distended. Normoactive bowel sounds. No hepa tosplenomegaly, no masses. MSK: Full range of motion, no joint swelling or deformity. Normal gait. Skin: Warm, dry, intact. No rashes, lesions, or pallor. Neuro: Alert and oriented x3. Cranial nerves II-XII intact. Strength 5/5 throughout. Sensation intact. Reflexes 2+ symmetric. Normal coordination and gait. Psych: Appropriate mood and affect. Normal judgment and insight. Coding Level of Care Code Est Pt Level 3 (65444) Diagnoses Viral URI J06.9 Hyperlipidemia E78.5 Hypervitaminosis D E67.3 Hypervitaminosis E67.8 Assessment & Plan Assessment & Plan (1) Viral URI: Code(s): J06.9 - Acute upper respiratory infection, unspecified Category: Medical (2) Hyperlipidemia: Code(s): E78.5 - Hyperlipidemia, unspecified Category: Medical (3) Hypervitaminosis D: Code(s): E67.3 - Hypervitaminosis D Category: Medical (4) Hypervitaminosis: Code(s): E67.8 - Other specified hyperalimentation Category: Medical Plan Consent Patient was informed and verbally consented to the use of an ambient scribe for clinic note documentation during this visit. Plan 1. Hyperlipidemia - The patient's total cholesterol is elevated at 253 mg/dL and LDL is 152 mg/dL. - Medication will not be initiated at this time, as the high HDL of 90 mg/dL and low triglycerides of 55 mg/dL are compensatory. - Recommended dietary modifications, including reducing intake of eggs, cheese, and fatty foods. 2. Elevated Vitamin Levels - The patient's vitamin B12 level is high at 1797, and vitamin D is high at 108. - Instructed the patient to discontinue vitamin B12 and vitamin D (cholecalciferol) supplements. - These supplements will not be refilled as they are not needed. 3. Acute Upper Respiratory Infection - For symptoms lasting 11 days, recommended supportive care including Tylenol, orange juice, and hot soups. - The use of pdlp-lcs-ypyrzeu medications such as DayQuil, NyQuil, Robitussin, and Mucinex is approved, as the patient has no contraindications like hypertension or diabetes. Discussion Notes I reviewed the lab results with the patient. I explained that the complete blood count, chemistry panel, kidney and liver function, thyroid, and folate levels are all normal. I also informed the patient that screenings for syphilis, hepatitis B, hepatitis C, and HIV were negative. We discussed the elevated total cholesterol of 253 and LDL of 152. I advised that due to the compensatory high HDL and low triglycerides, I am not starting medication at this time. I recommended dietary changes, such as reducing intake of eggs, cheese, and fats. I explained that the vitamin B12 and vitamin D levels are too high, and instructed the patient to stop taking these supplements. I informed the patient that I will not be refilling these prescriptions. Regarding the patient's recent illness, I recommended supportive care and confirmed that msrb-vho-fduiklx medications like DayQuil and NyQuil are safe to use as the patient has no history of high blood pressure or diabetes. We agreed on a follow-up appointment in six months. Patient Instructions - Your lab results were mostly good, but your cholesterol is a little high. - To help lower your cholesterol, please try to cut down on eating eggs, cheese, and other fatty foods. - Your vitamin B12 and vitamin D levels are too high. Please stop taking your vitamin B12 and vitamin D supplements. - For your cold/flu symptoms, continue with supportive care like Tylenol, orange juice, and hot soups. - It is safe for you to take muam-mkn-oxbnsdt medicines like DayQuil, NyQuil, Robitussin, or Mucinex. - Please make a follow-up appointment to see me in six months. Medical Decision Making The patient is a 79-year-old individual who presented for a review of recent laboratory results. The findings revealed hyperlipidemia, with a total cholesterol of 253 mg/dL and LDL of 152 mg/dL. Given the patient's significantly high HDL of 90 mg/dL and low triglycerides of 55 mg/dL, which are protective factors, I have deferred pharmacotherapy at this time. The management plan focuses on dietary modification, including reduced consumption of fats, eggs, and cheese. Lab work also showed supratherapeutic levels of vitamin B12 (1797) and vitamin D (108) secondary to supplementation. The decision was made to have the patient discontinue both supplements, and no refills will be provided. The patient also reported an 11-day viral illness. Supportive care was recommended, and I confirmed the safety of wtxr-ddr-xgtfbfu products like DayQuil as the patient has no history of hypertension or diabetes, which would be contraindications. A follow-up in six months is scheduled for reassessment. Total Time Statement 20 min Total time spent caring for the patient today includes pre-visit chart review, documentation, review of laboratory and diagnostic imaging results, medication reconciliation, medically necessary evaluation, counseling on diagnoses, care coordination, ordering appropriate tests and medications, review of tests performed by other providers, reporting test results to the patient, and communication with other healthcare providers. Orders: Orders Influenza [id number] Immunization Today Z23 - Encounter for immunization Medications: New Fluarix [id number] (PF) (flu vac ts (6mos up)-PF) 0.5 mL IM ONCE 0.5 mL 0RF NS Z23 - Encounter for immunization latanoprost 0.005% 1 drp ophthalmic (eye) BEDTIME 7.5 mL 3RF
== END 2025-03-17 09:27 | disposition home or self-care (01) ==
LOC: HO.HMCFMS 08:40
PROVIDERS: PCP Nurse Practitioner Family; Visit Provider Student in an Organized Health Care Education/Training Program
DX: J06.9 Acute upper respiratory infection, unspecified (principal); E78.5 Hyperlipidemia, unspecified; E67.3 Hypervitaminosis D; E67.8 Other specified hyperalimentation

== ENCOUNTER → 2025-04-08 11:22 | Outpatient (REF) | payer OTHER, SELFPAY ==
--- OUTSIDE RECORDS SUMMARY | 2024-06-21 21:30 | XMS_ITS ---
Author Organization [facility] Address [address] [place] [address] Phone [phone] Care Team Providers Care Mailroom Manager Name Role Phone Jessica MARRUFO, Nina Primary Care Provider U joaquim MIRANDA MD, DENG Unavailable Migration, Provider Unavailable Unavailable Allergies Allergen (clinical drug ingredient) Drug/Non Drug Allergy documented on EMR Reaction Allergy Type Onset Date Status codeine Codeine Unknown Drug Allergy Active [facility]AS[facility] VISIT [facility] Conversion Encounter Medications Medication SIG (Take, Route, Frequency, Duration) Notes Start Date End Date Diagnosis (ICD Code) Status Methenamine Hippurate MANDELATE 1 G TABLET 1 TAB(S) ORALLY DAILY; Duration: 30 DAY(S) *Please review and pick correct strength-formula tion from Medispan options. If intended option is not shown, discontinue and re-order from Quick Search* 10/16/2016 Active KlonoPIN *Please review and pick correct strength-formula [facility]ion from [facility]. If intended option is not shown, discontinue and re-order from Quick Search* Active Levoxyl *Please review and pick correct strength-formula tion from Medispan options. If intended option is not shown, discontinue and re-order from Quick Search* Active Valtrex 1 GM Tablet 1 tab(s) orally every 8 hours; Duration: 7 day(s) Active buPROPion HCl 75 MG Tablet 1 tab(s) orally 3 times a day; Duration: 30 day(s) Active Sertraline HCl 25 MG Tablet 1 tab(s) orally once a day; Duration: 30 day(s) Active Social History Sex Observation Social History Observation Description Sex Observation Female Encounters Date Time Type Facility Location Provider Diagnosis 06/21/2024 09:30 PM Office Visit [facility] [address] [place] [address] Provider Migration Plan Of Treatment No Information Medical (General) History Medical History History ICD Code Septocemia Colitis Anxiety disorder C-diff Glaucoma(Pt uses eye drops for this) Surgical History Surgery Date(Month/Year) Colon Resection 08/2006 Colon Surgery 02/2007 6 Blockages 3 Non-malignant Tumors Hysterectomy, unspecified 1974 3 Ovarian Cysts Ruptured btween 1969- Appendix 1970 Progress Notes * Nicole SAUNDERS ADOB: [birth year] (79 yo F)Acc No.[id number]:06/21/2024 Patient: Christina Saundersn Arsenio Provider: Provider Migration :1945 Age:79 Y Sex:Female Date:06/21/2024 Address:[address] [place] [address] Pcp:Nina Lopez MD Subjective: * Chief Complaints: * Multum To Medispan Conversion Encounter * Medications: TakingMethenamine Hippurate MANDELATE 1 G TABLET 1 TAB(S) ORALLY DAILY , Notes to Pharmacist: *Please review and pick correct strength-formulation from Medispan options. If intended option is not shown, discontinue and re-order from Quick Search*Methenamine Hippurate MANDELATE 1 G TABLET 1 TAB(S) ORALLY DAILY , Notes to Pharmacist: *Please review and pick correct strength-formulation from Medispan options. If intended option is not shown, discontinue and re-order from Quick Search*[id number] , Notes to Pharmacist: *Please review and pick correct strength-formulation from Medispan options. If intended option is not shown, discontinue and re-order from Quick Search*Levoxyl , Notes to Pharmacist: *Please review and pick correct strength-formulation from Medispan options. If intended option is not shown, discontinue and re-order from Quick Search*[id number] , Notes to Pharmacist: *Please review and pick correct strength-formulation from Medispan options. If intended option is not shown, discontinue and re-order from Quick Search*KlonoPIN , Notes to Pharmacist: *Please review and pick correct strength-formulation from Medispan options. If intended option is not shown, discontinue and re-order from Quick Search*[id number] HCl 75 MG Tablet 1 tab(s) orally 3 times a day buPROPion HCl 75 MG Tablet 1 tab(s) orally 3 times a day [id number] 1 GM Tablet 1 tab(s) orally every 8 hours Valtrex 1 GM Tablet 1 tab(s) orally every 8 hours 865904Hpvtgsijnk HCl 25 MG Tablet 1 tab(s) orally once a day Sertraline HCl 25 MG Tablet 1 tab(s) orally once a day [id number] Methenamine Hippurate MANDELATE 1 G TABLET 1 TAB(S) ORALLY DAILY , Notes to Pharmacist: *Please review and pick correct strength-formulation from [employer] options. If intended option is not shown, discontinue and re-order from Quick Search*Taking Levoxyl , Notes to Pharmacist: *Please review and pick correct strength-formulation from [employer] options. If intended option is not shown, discontinue and re-order from Quick Search*Taking KlonoPIN , Notes to Pharmacist: *Please review and pick correct strength-formulation from [employer] options. If intended option is not shown, discontinue and re-order from Quick Search*Taking buPROPion HCl 75 MG Tablet 1 tab(s) orally 3 times a day Taking Valtrex 1 GM Tablet 1 tab(s) orally every 8 hours Taking Sertraline HCl 25 MG Tablet 1 tab(s) orally once a day * Allergies: Codeine Billing Information: * Procedure Codes: * Electronic signature of Prov ider Migration on 04/08/2025 at 11:25 AM EST Sign off status: Pending * Provider: Provider Migration Date: 06/21/2024 Generated for Iva garrido/Seema/Christine on: 04/08/2025 11:25 AM EST
--- OUTSIDE RECORDS SUMMARY | 2025-04-08 11:25 | XMS_ITS ---
Patient Health Record Created on: April 08, 2025 Nicole Saunders .[id number] : [id number] Sex: Female Author Organization [facility] Address [address] [place] [address] Phone [phone] Care Team Providers Care Purchase Price Analyst Name Role Phone Jessica MARRUFO, Nina Primary [...] Social History Observation Description Sex Observation Female Social History Additional Details Category Social Info Options Details Social History Alcohol: socially Very Little Smoking: no Sexually active: no If involved in a relationship Problems Problem Type SNOMED Code ICD Code Dates Problem Status W/U Status Risk Notes Problem Urinary tract infectious disease (disorder) (50157864) Urinary tract infection, site not specified (N39.0) Added On: Active confirmed Problem Calculus of kidney (34704095) Calculus of kidney (N20.0) Added On: Active confirmed Encounters Date Time Type Facility Location Provider Diagnosis 06/21/2024 09:30 PM Office Visit [facility] [address] [place] [address] Provider Migration Plan Of Treatment No Information Insurance Providers Payer Name Payer Address Payer Phone Subscriber Number Group Number Insured Name Patient Relationship to Insured Coverage Start Date Coverage End Date [facility] Medicare Advantage [address] [address] [place] [address] [id number] Nicole Saunders Self - patient is the insured Medical (General) History Medical History History ICD Code Septocemia Colitis Anxiety disorder C-diff Glaucoma(Pt uses eye drops for this) Surgical History Surgery Date(Month/Year) Colon Resection 08/2006 Colon Surgery 02/2007 6 Blockages 3 Non-malignant Tumors Hysterectomy, unspecified 1974 3 Ovarian Cysts Ruptured btween 1969- Appendix 1970
--- OUTSIDE RECORDS SUMMARY | 2025-04-08 11:25 | XMS_ITS | Clinical Summary ---
Author Organization [facility] 299 [facility] Address [address] [place] [address] Phone Care Team Providers Care Office Services Associate Name Role Phone BrianrosalieElisha Primary Care Provider Surgical History Surgery Date Site/Laterality Comments APPENDECTOMY PROCEDURE: HISTORICAL APPENDECTOMY HYSTERECTOMY PROCEDURE: HISTORICAL HYSTERECTOMY ABDOMINAL SURGERY 03/04/2020 PROCEDURE: SD UNLISTED PROCEDURE ABDOMEN PERITONEUM & OMENTUM; COMMENT: Also done 2006 OTHER SURGICAL HISTORY N/A PROCEDURE: SD ENTEROTOMY SM INT OTH/THN DUO EXPL BX/FB RMVL; COMMENT: x 2, 2011 and 2014 BREAST LUMPECTOMY PROCEDURE: HISTORICAL BREAST LUMPECTOMY; COMMENT: x 3. OVARIAN CYST REMOVAL PROCEDURE: SD OVARIAN CYSTECTOMY UNI/BI; COMMENT: Repair of ruptured ovary. OTHER SURGICAL HISTORY 2006 PROCEDURE: SD PERIRECTAL INJ SCLEROSING SOLUTION PROLAPSE; COMMENT: posterior colopexy. ESOPHAGOGASTRODUODENOSCOPY 10/13/2021 PROCEDURE: SD EGD TRANSORAL BIOPSY SINGLE/MULTIPLE; COMMENT: esoph ulcer, hiatal hernia, Contreras's OTHER SURGICAL HISTORY 11/19/2023 N/A PROCEDURE: SD LAPS RPR PARAESPHGL HRNA INCL FUNDPLSTY W/MESH Medical History Medical History Date Comments Anxiety and depression DX:Anxiet y and depression Hypothyroidism DX:Hypothyroidis m SBO (small bowel obstruction ) (CMS/HCC V24, CMS/HCC V28) DX:SBO (small bowel obstruct ion) ([facility]); COMMENT: Recurrent. Hospitalized 03/03/2020 - 03/26/2020, [facility] Surg 03/04/2020 exploratory lap, lysis [...] on file Sexual Orientation Not on file Last Filed Vital Signs Vital Sign Reading [...] Escherichia coli(A) PEGGY 01/31/2025 10:45 AM EDT [facility] Comment: This is an [...] MICROBIOLOGY - GENERAL ORDER EMILY Final Result [facility] [address] [place] [address], * Lipid panel with reflex to direct LDL (11/17/2024 2:39 PM EDT) Cholesterol 146 0 - 200 mg/dL LAB CHEMISTRY METHOD 11/17/2024 5:41 PM EDT [facility] Triglycerides 45 0 - 150 mg/dL LAB CHEMISTRY METHOD 11/17/2024 5:41 PM EDT [facility] HDL 81 >=40 mg/dL LAB CHEMISTRY METHOD 11/17/2024 5:41 PM EDT [facility] LDL Calculated 56 0 - 100 mg/dL LAB CHEMISTRY METHOD 11/17/2024 5:41 PM EDT [facility] VLDL Cholesterol Shan 9 mg/dL LAB CHEMISTRY METHOD 11/17/2024 5:41 PM EDT [facility] Non HDL Chol. (LDL+VLDL) 65 <145 mg/dL LAB CHEMISTRY METHOD 11/17/2024 5:41 PM EDT [facility] Chol/HDL Ratio 1.8 0.0 - 4.4 LAB CHEMISTRY METHOD 11/17/2024 5:41 PM EDT [facility] Blood Venous blood specimen / Unknown Venipuncture / Unknown 11/17/2024 2:39 PM EDT 11/17/2024 2:39 PM EDT us Elisha Uko-Abasi LAB BLOOD ORDERABLES Final Resul t [facility] [address] [place] [address], from Last 3 Months or Most Recently Relevant to Health Maintenance Insurance [facility] MEDICARE Advance Directives Documents on File Type Date Recorded Patient Direct Support Staff Member Expl anation Health Care Decision (hx) 11/22/2023 [...] (hx) 11/01/2022 AD SNIDER DIRECTIVE Care Teams Office Services Associate Relationship Specialty Start Date End Date Elisha Wilkins [address] [place] [address] PCP - General 02/11/24
--- OUTSIDE RECORDS SUMMARY | 2025-04-08 11:25 | XMS_ITS | Data Portability ---
Author Organization [facility]riel, [id number] [place] [address] Assessment No assessment recorded. Plan of Treatment [...] By Organization Details Last Modified Time 08/15/2022 [id number] We recommend you go immediately to the nearest Emergency Department for further evaluation. We recommend that you go directly there from here and that you do not eat or drink anything until after you have been evaluated by the ER and cleared by them to eat and drink. [email or web address] Not available 08/15/2022 15:26:58 Reason for Referral None Reported. Problems Name Problem SNOMED Code Status Onset Date Resolution Date Notes Provider Name and Address Organization Details Recorded Time Contreras's esophagus [id number] Active 023 [facility] 15:19:34 Problem Notes None recorded. Medical Equipment None Reported. Allergies Allergen ID Allergen Name Allergen Category Reaction Reaction Severity Criticality Documentation Date Start Date Code Code System Note Provider Name and Address Organization Details Recorded Time 474291 codeine medicatio n anaphylax is severe Not [...] % 60 /min 168.91 cm 17.2 kg/m2 72803.9 8 g 98 [degF] 101/62 mm[Hg] JOAQUIN FORD PA - [facility] 3 15:17:48 Social History Question Answer Notes LastModified by Organizat ion Details LastModified Time Tobacco Smoking Status Never Smoker JOAQUIN mckenzie PA - [facility] 08/15/2022 15:19:44 What Is Your Water Source? City [email or web address] Information not available 08/15/2022 What Is Your Heat Source? Electric [email or web address] Information not available 08/15/2022 Have You Had Direct Contact, Or Contact During Intimacy, With Monkeypox Rash, Scabs, Or Body Fluids From A Person With Monkeypox? No [email or web address] Information not available 08/15/2022 What Is Your Relationship Status? Unknown [email or web address] Information not available 08/15/2022 Have You Recently Traveled Abroad? No [email or web address] Information not available 08/15/2022 Are You Currently In School? No [email or web address] Information not available 08/15/2022 Sex: Unknown Functional Status Question Answer Note LastModified by Organizat ion Details LastModified Time Do you use any illicit or recreational drugs? No Information not available 08/15/2022 Do you or have you ever used any other forms of tobacco or nicotine? No [email or web address] Information not available 08/15/2022 Are you currently employed? No Information not available 08/15/2022 Mental Status None recorded. Family History Relationship Description Onset Age of this Age Resolved Age Notes LastModified by Organization Details LastModified Time Father No current problems or disability [email or web address] Not available 08/15 15:19:37 Mother No current problems or disability [email or web address] Not available 08/15 15:19:37 Medical History No medical history recorded. Gynecological HistoryNo gynecological history recorded. Obstetrics History GPAL:G 0 P 0 0 0 0 Past Encounters Encounter ID Performer Location Encounter Start Date Encounter Closed Date Diagnosis/Indication Diagnosis SNOMED-CT Code Diagnosis ICD10 Code Diagnosis IMO Codes Diagnosis [place] [id number] [place] [address] [address] [place] [address] 08/15/2022 15:04:41 08/15/2022 15:34:35 Diarrhea 69162379 R19.7 Risks of not being further evaluated [...] to be transporte d via ambulance. Fatigue 87307387 R53.83 Health Concerns Section Related Observation LastModified by Organization Detai ls LastModified Time None Recorded Concern Status LastModified by Organization Details LastModified Time None Recorded Advance Directives Directive None Recorded Payers Insurance Date Sequence Insurance Name Policy Number Policy Munoz Covered Member ID Munoz Member ID Guarantor Name 08/15/2022 1 [facility] - DUAL ELIGIBLE (MEDICARE REPLACEMENT/A DVANTAGE - PPO) [id number] Nicole Saunders [id number] Nicole Saunders Notes Date Note Type Note Provider Name and Address Organization Details Recorded Time 08/15/2022 text/html Diarrhea UCReported by Patientpt sts shes been going to the bathroom non stop since eating a a [place] restaurant 1 week ago, Hx of 7 colon surgeries. no PCP here. fatigue, hx of cdiff. KING ELAM [address] [place], [address], PA - [facility] 08/15/2022 15:28:29 OBGyn Episode No OBEpisode recorded.
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
== END ==
LOC: HO.SL 11:22
PROVIDERS: PCP Student in an Organized Health Care Education/Training Program; Visit Provider Student in an Organized Health Care Education/Training Program
DX: G47.10 Hypersomnia, unspecified (principal)
CPT/HCPCS: 95806

== ENCOUNTER → 2025-04-12 12:52 | Outpatient (BNV) | payer OTHER, SELFPAY | PROVIDERS: PCP Student in an Organized Health Care Education/Training Program; Visit Provider Internal Medicine | DX: G47.10 Hypersomnia, unspecified (principal) | CPT/HCPCS: 95806 ==